=== PATIENT | male | born 1965 ===

== ENCOUNTER 2020-05-21 10:06 | Inpatient (IN) | payer MEDICAID ==
[~2020-05-21] VITALS: Ht 185.4 cm; Wt 96.8 kg
--- NOTE | 2020-05-21 10:07 | NUR ---
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
[2020-05-21] MEDS ORDERED: BIVALIRUDIN 250 MG ONE ×2 (10:13→11:04)
[2020-05-21] MEDS ORDERED: MIDAZOLAM 1 MG/ML, 5ML ONE (10:13)
[2020-05-21] MEDS ORDERED: FENTANYL PF 100 MCG/2ML ONE (10:13)
[2020-05-21] MEDS ORDERED: HEPARIN 1,000 UNITS/ML, 10ML ONE (10:13)
[2020-05-21] MEDS ORDERED: LIDOCAINE 2%, 20ML ONE (10:13)
--- NOTE | 2020-05-21 10:25 | NUR ---
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
[2020-05-21] MEDS ORDERED: LISINOPRIL (10:34)
[2020-05-21] MEDS ORDERED: CARVEDILOL (10:34)
[2020-05-21] MEDS ORDERED: SPIRONOLACTONE (10:34)
[2020-05-21 10:40] LABS: BASOPHILS % (AUTO) 1 % (0-1); EOSINOPHILS % (AUTO) 0 % (1-7); LYMPHOCYTES % (AUTO) 20 % (22-44); MEAN CORPUSCULAR HEMOGLOBIN 32.7 pg (27.5-34.5); MEAN CORPUSCULAR HGB CONC 34.1 g/dL (33.2-36.2); MEAN PLATELET VOLUME 8.2 fL (7.4-10.4); MONOCYTES % (AUTO) 9 % (2-9); NEUTROPHILS % (AUTO) 70 % (42-75); PLATELET COUNT 284 x10^3/uL (130-400); RED BLOOD COUNT 5.61 x10^6/uL (4.38-5.82)
[2020-05-21 10:42] LABS: MD NO
[2020-05-21 10:46] LABS: INTERNATIONAL NORMALIZED RATIO 1.11 (0.93-1.1); PROTHROMBIN TIME 11.8 Seconds (9.6-11.5)
[2020-05-21] MEDS ORDERED: ONDANSETRON 2MG/ML, 2ML ONE (10:47)
[2020-05-21] MEDS ORDERED: morphine SULFATE 10 MG/ML, 1ML ONE (10:47)
[2020-05-21 10:58] LABS: TROPONIN I 0.257 ng/mL (0.000-0.045)
[2020-05-21] MEDS ORDERED: SODIUM CHLORIDE 0.9% 1,000ML IVBOLUS ONE (11:00)
[2020-05-21] MEDS ORDERED: MORPHINE SULFATE 4 MG/ML, 1ML IVPush ONE (11:00)
[2020-05-21] MEDS ORDERED: PRASUGREL 10 MG TABLET ONE (11:03)
[2020-05-21] MEDS ORDERED: BIVALIRUDIN 250 MG in SODIUM CHLORIDE 0.9% 50 ML IV SCH (12:00)
[2020-05-21] MEDS: SODIUM CHLORIDE 0.9% 1,000 ML IV SCH ×2 (12:30→19:24)
[2020-05-21] MEDS ORDERED: ONDANSETRON 2MG/ML, 2ML IVPush ONE (13:30)
[2020-05-21] MEDS ORDERED: ONDANSETRON 2MG/ML, 2ML IVPush PRN (14:30)
[2020-05-21] MEDS ORDERED: NITROGLYCERIN 0.4 MG BOTTLE (25 TABS) SL PRN (14:30)
[2020-05-21] MEDS ORDERED: NITROGLYCERIN 0.4 MG/SPRAY SL PRN (14:30)
[2020-05-21] MEDS ORDERED: BISACODYL 10 MG SUPP PR PRN (14:30)
[2020-05-21] MEDS ORDERED: ZOLPIDEM 5MG TABLET PO PRN (14:30)
[2020-05-21] MEDS ORDERED: ACETAMINOPHEN 325 MG TABLET PO PRN (14:30)
[2020-05-21] MEDS ORDERED: HEPARIN 25,000 UNITS/250ML PMX 250 ML IV PRN ×2 (17:00→17:30)
[2020-05-21] MEDS ORDERED: HEPARIN/D5W 25,000 UNITS/250 ML PREMIX IV PRN (17:00)
[2020-05-21] MEDS ORDERED: HEPARIN 5,000 UNITS/ML, 1ML IV ONE ×2 (17:30)
[2020-05-21] MEDS ORDERED: HEPARIN 5,000 UNITS/ML, 1ML IV PRN (17:30)
[2020-05-21] MEDS ORDERED: HEPARIN 5,000 UNITS/ML, 1ML IVPush ONE (20:30)
[2020-05-21] MEDS: ATORVASTATIN 80 MG TABLET PO SCH (20:44)
[2020-05-22] MEDS: SODIUM CHLORIDE 0.9% 1,000 ML IV SCH (04:00)
[2020-05-22 04:40] LABS: ANION GAP 6 mmol/L (5-15); CALCIUM 8.2 mg/dL (8.5-10.1); CHLORIDE 104 mmol/L (98-107); CREATININE 1.05 mg/dL (0.7-1.3)
[2020-05-22] MEDS: ASPIRIN 81 MG TABLET EC PO SCH (06:02)
[2020-05-22] MEDS: CARVEDILOL 3.125 MG TABLET PO SCH ×2 (06:03→18:07)
[2020-05-22] MEDS: LISINOPRIL 5 MG TABLET PO SCH (10:13)
[2020-05-22] MEDS: APIXABAN 5 MG TABLET PO SCH ×2 (10:13→20:38)
[2020-05-22] MEDS: PRASUGREL 10 MG TABLET PO SCH (10:13)
[2020-05-22 12:43] VITALS: BP 130/85
[2020-05-22 18:05] VITALS: BP 120/83
[2020-05-22] MEDS: ATORVASTATIN 80 MG TABLET PO SCH (20:38)
[2020-05-22 23:12] VITALS: BP 110/71
[2020-05-23] MEDS: ASPIRIN 81 MG TABLET EC PO SCH (05:18)
[2020-05-23] MEDS: CARVEDILOL 3.125 MG TABLET PO SCH (05:20)
[2020-05-23 07:07] VITALS: BP 108/73
[2020-05-23] MEDS: PRASUGREL 10 MG TABLET PO SCH (09:22)
[2020-05-23] MEDS: APIXABAN 5 MG TABLET PO SCH (09:22)
[2020-05-23] MEDS: LISINOPRIL 5 MG TABLET PO SCH (09:23)
[2020-05-23] MEDS ORDERED: CARV3.1212 PO (09:42)
[2020-05-23] MEDS ORDERED: ATOR-2 PO (09:42)
[2020-05-23] MEDS ORDERED: LISI5TAB7 PO (09:42)
[2020-05-23] MEDS ORDERED: APIX5TAB PO (09:42)
[2020-05-23] MEDS ORDERED: ASPI81TA45 PO (09:42)
[2020-05-23] MEDS ORDERED: SPIR25TA PO (09:42)
[2020-05-23] MEDS ORDERED: PRAS10TA4 PO (09:42)
== END 2020-05-23 11:25 | disposition home or self-care (01) | DRG 246 ==
LOC: EDBD 10:06 → EDSEX 10:06 → ED 11:10 → CSU 11:49 → 5SO 05-22 12:54 → DCLOUNGE 05-23 11:16
PROVIDERS: ADMIT Internal Medicine; ATTEND Internal Medicine
PROC: 027034Z Dilation of Coronary Artery, One Artery with Drug-eluting Intraluminal Device, Percutaneous Approach (ICD-10-PCS; principal; 2020-05-21)
PROC: 4A023N7 Measurement of Cardiac Sampling and Pressure, Left Heart, Percutaneous Approach (ICD-10-PCS; 2020-05-21)
PROC: B2111ZZ Fluoroscopy of Multiple Coronary Arteries using Low Osmolar Contrast (ICD-10-PCS; 2020-05-21)
DX: I21.09 ST elevation (STEMI) myocardial infarction involving other coronary artery of anterior wall (principal); R57.0 Cardiogenic shock; Z20.828 Contact with and (suspected) exposure to other viral communicable diseases; E78.5 Hyperlipidemia, unspecified; I21.19 ST elevation (STEMI) myocardial infarction involving other coronary artery of inferior wall; F15.10 Other stimulant abuse, uncomplicated; I25.10 Atherosclerotic heart disease of native coronary artery without angina pectoris; F17.200 Nicotine dependence, unspecified, uncomplicated; I25.5 Ischemic cardiomyopathy; I51.3 Intracardiac thrombosis, not elsewhere classified; Z59.0 Homelessness; Z79.01 Long term (current) use of anticoagulants; Z79.899 Other long term (current) drug therapy; Z79.891 Long term (current) use of opiate analgesic
CPT/HCPCS: 36415; 93458; C9600; J3490; 71045; 80047; 80048; 84484; 85018; 85025; 85520; 85610; 85730; 87081; 87635; 93005; 93306; 93356; 99156; 99157; C1760; C1769; C1894; G0378; J0583; J1644; J2250; J2405; J3010; C1725; C1874; C1887; J2270; J7030; Q9967